=== PATIENT | male | born 1980 | race Two or more races ===

== ENCOUNTER 2017-04-06 08:22 | Inpatient (IN) | payer SELFPAY ==
[2017-04-06 09:03] LABS: BASO # 0.2 x10^3/uL (0.0-0.2); BASO % 1 % (0-3); EOS # 0.1 x10^3/uL (0.0-0.7); EOS % 0 % (0-3); HEMATOCRIT 42.7 % (39.0-53.0); LYMPH # 3.1 x10^3/uL (1.0-4.8); LYMPH % 9 % (24-48); MEAN CORPUSCULAR HEMOGLOBIN 30 pg (25-35); MEAN CORPUSCULAR HGB CONC 33 g/dL (31-37); MEAN CORPUSCULAR VOLUME 90 fL (79-100); MONO # 2.3 x10^3/uL (0.0-1.1); MONO % 7 % (0-9); NEUT # 28.8 x10^3uL (1.8-7.7); NEUT % 84 % (31-73); PLATELET COUNT 417 x10^3/uL (140-400); RED BLOOD COUNT 4.72 x10^6/uL (4.30-5.70); RED CELL DISTRIBUTION WIDTH 13.6 % (11.5-14.5); WHITE BLOOD COUNT 34.5 x10^3/uL (4.0-11.0)
[2017-04-06 09:04] LABS: ADD MAN DIFF? YES
[2017-04-06 09:10] LABS: ANION GAP 8 (6-14); BLOOD UREA NITROGEN 12 mg/dL (8-26); BUN/CREATININE RATIO 13 (6-20); CALCIUM 8.3 mg/dL (8.5-10.1); CARBON DIOXIDE 30 mmol/L (21-32); CHLORIDE 98 mmol/L (98-107); CREATININE 0.9 mg/dL (0.7-1.3); GFR 95.5; GLUCOSE 132 mg/dL (70-99); SODIUM 136 mmol/L (136-145)
[2017-04-06 09:17] LABS: ALBUMIN 2.3 g/dL (3.4-5.0); ALBUMIN/GLOBULIN RATIO 0.4 (1.0-1.7); ALK PHOS 140 U/L (46-116); ALT (SGPT) 64 U/L (16-63); AST (SGOT) 55 U/L (15-37); TOTAL BILIRUBIN 0.6 mg/dL (0.2-1.0); TOTAL PROTEIN 7.5 g/dL (6.4-8.2)
[2017-04-06 09:22] LABS: LACTIC ACID 1.2 mmol/L (0.4-2.0)
[2017-04-06 09:35] LABS: NT-PRO BNP 69 pg/mL (0-124)
[2017-04-06] MEDS: VANCOMYCIN 2 GM in IV DEXTROSE 5% 500 ML IV (09:38)
[2017-04-06] MEDS ORDERED: MORPHINE SULFATE 4 MG/ML DISP.SYRIN. IV (10:00)
[2017-04-06] MEDS ORDERED: ONDANSETRON PF 4 MG/2 ML VIAL. IV (10:00)
[2017-04-06 10:44] LABS: % ATYL 2 % (0-0); % BANDS 8 % (0-9); % LYMPHS 14 % (24-48); % MONOS 3 % (0-10); % SEGS 73 % (35-66); NUCLEATED RBC 1
[2017-04-06 10:45] LABS: PLT ESTIMATE INCREASED (ADEQUATE)
[2017-04-06] MEDS: VANCOMYCIN PER PHARMACY MC (14:47)
[2017-04-06] MEDS: VANCOMYCIN 2 GM in IV DEXTROSE 5 %-0.2 % NACL 500 ML IV (18:52)
[2017-04-07] MEDS: LACTOBACILLUS RHAMNOSUS GG 1 CAPSULE. PO ×3 (00:53→20:32)
[2017-04-07] MEDS: VANCOMYCIN 2 GM in IV DEXTROSE 5 %-0.2 % NACL 500 ML IV (00:54)
[2017-04-07 07:30] LABS: HCV ANTIBODY 0.2 s/co ratio (0.0-0.9); HEP A IGM ABDY Negative (Negative); HEP B SURFACE AG Negative (Negative)
[2017-04-07 08:27] LABS: ADD MAN DIFF? NO
[2017-04-07 08:30] LABS: BASO # 0.2 x10^3/uL (0.0-0.2); BASO % 1 % (0-3); EOS # 0.1 x10^3/uL (0.0-0.7); EOS % 1 % (0-3); HEMATOCRIT 39.9 % (39.0-53.0); HEMOGLOBIN 13.2 g/dL (13.0-17.5); LYMPH # 2.8 x10^3/uL (1.0-4.8); LYMPH % 14 % (24-48); MEAN CORPUSCULAR HEMOGLOBIN 30 pg (25-35); MEAN CORPUSCULAR HGB CONC 33 g/dL (31-37); MEAN CORPUSCULAR VOLUME 91 fL (79-100); MONO # 1.3 x10^3/uL (0.0-1.1); MONO % 7 % (0-9); NEUT % 78 % (31-73); PLATELET COUNT 426 x10^3/uL (140-400); RED CELL DISTRIBUTION WIDTH 13.6 % (11.5-14.5); WHITE BLOOD COUNT 19.4 x10^3/uL (4.0-11.0)
[2017-04-07 09:04] LABS: VANC TR 22.1 mcg/mL (10.0-20.0)
[2017-04-07] MEDS: VANCOMYCIN PER PHARMACY MC (09:12)
[2017-04-07] MEDS: VANCOMYCIN 2 GM in IV DEXTROSE 5% 500 ML IV (15:06)
[2017-04-08] MEDS: VANCOMYCIN 2 GM in IV DEXTROSE 5% 500 ML IV ×2 (00:31→16:52)
[2017-04-08 04:12] LABS: ADD MAN DIFF? NO
[2017-04-08 04:23] LABS: BASO # 0.2 x10^3/uL (0.0-0.2); BASO % 1 % (0-3); EOS # 0.2 x10^3/uL (0.0-0.7); EOS % 1 % (0-3); HEMATOCRIT 40.4 % (39.0-53.0); HEMOGLOBIN 13.2 g/dL (13.0-17.5); LYMPH # 2.6 x10^3/uL (1.0-4.8); LYMPH % 16 % (24-48); MEAN CORPUSCULAR HEMOGLOBIN 30 pg (25-35); MEAN CORPUSCULAR HGB CONC 33 g/dL (31-37); MEAN CORPUSCULAR VOLUME 91 fL (79-100); MONO % 7 % (0-9); NEUT # 12.2 x10^3uL (1.8-7.7); NEUT % 75 % (31-73); PLATELET COUNT 459 x10^3/uL (140-400); RED BLOOD COUNT 4.46 x10^6/uL (4.30-5.70); RED CELL DISTRIBUTION WIDTH 13.9 % (11.5-14.5); WHITE BLOOD COUNT 16.2 x10^3/uL (4.0-11.0)
[2017-04-08 05:47] LABS: SEDIMENTATION RATE 109 (0-15)
[2017-04-08] MEDS: BENZONATATE 100 MG CAPSULE. PO ×3 (10:03→20:31)
[2017-04-08] MEDS: LACTOBACILLUS RHAMNOSUS GG 1 CAPSULE. PO ×2 (10:04→20:31)
[2017-04-08 10:28] LABS: ALBUMIN 1.9 g/dL (3.4-5.0); ALBUMIN/GLOBULIN RATIO 0.3 (1.0-1.7); ALK PHOS 124 U/L (46-116); ALT (SGPT) 60 U/L (16-63); AST (SGOT) 43 U/L (15-37); BLOOD UREA NITROGEN 10 mg/dL (8-26); BUN/CREATININE RATIO 11 (6-20); CREATININE 0.9 mg/dL (0.7-1.3); GFR 95.5; GLUCOSE 113 mg/dL (70-99); TOTAL BILIRUBIN 0.5 mg/dL (0.2-1.0)
[2017-04-08 10:29] LABS: ANION GAP 7 (6-14); CARBON DIOXIDE 31 mmol/L (21-32); CHLORIDE 103 mmol/L (98-107); DIRECT BILIRUBIN 0.2 mg/dL (0.0-0.2); POTASSIUM 4.5 mmol/L (3.5-5.1); SODIUM 141 mmol/L (136-145)
[2017-04-09 03:21] LABS: HEMOGLOBIN A1C 5.6 % (4.8-5.6)
[2017-04-09 04:32] LABS: BASO % 0 % (0-3); EOS # 0.2 x10^3/uL (0.0-0.7); EOS % 1 % (0-3); HEMATOCRIT 39.1 % (39.0-53.0); HEMOGLOBIN 13.1 g/dL (13.0-17.5); LYMPH # 2.8 x10^3/uL (1.0-4.8); LYMPH % 18 % (24-48); MEAN CORPUSCULAR HEMOGLOBIN 31 pg (25-35); MEAN CORPUSCULAR HGB CONC 33 g/dL (31-37); MEAN CORPUSCULAR VOLUME 92 fL (79-100); MONO # 0.9 x10^3/uL (0.0-1.1); MONO % 6 % (0-9); NEUT # 11.6 x10^3uL (1.8-7.7); NEUT % 75 % (31-73); PLATELET COUNT 536 x10^3/uL (140-400); RED BLOOD COUNT 4.27 x10^6/uL (4.30-5.70); RED CELL DISTRIBUTION WIDTH 13.5 % (11.5-14.5); WHITE BLOOD COUNT 15.5 x10^3/uL (4.0-11.0)
[2017-04-09 04:46] LABS: ADD MAN DIFF? YES
[2017-04-09] MEDS: VANCOMYCIN 2 GM in IV DEXTROSE 5% 500 ML IV ×2 (05:08→19:29)
[2017-04-09] MEDS: BENZONATATE 100 MG CAPSULE. PO ×3 (08:48→21:04)
[2017-04-09] MEDS: LACTOBACILLUS RHAMNOSUS GG 1 CAPSULE. PO ×2 (08:48→21:04)
[2017-04-09 11:35] LABS: % ATYL 1 % (0-0); % BANDS 10 % (0-9); % EOS 2 % (0-5); % METAS 2 % (0-0); % MYELOS 3 % (0-0)
[2017-04-09 11:38] LABS: PLT ESTIMATE INCREASED (ADEQUATE)
[2017-04-09 11:40] LABS: POLYCHROMASIA SLIGHT
[2017-04-09 11:41] LABS: % LYMPHS 16 % (24-48); % MONOS 5 % (0-10); % SEGS 61 % (35-66)
[2017-04-09 15:23] LABS: THYROID STIM HORMONE (TSH) 4.684 uIU/mL (0.358-3.74)
[2017-04-09] MEDS: VANCOMYCIN PER PHARMACY MC ×2 (15:31→19:11)
[2017-04-09 18:57] LABS: VANC TR 16.5 mcg/mL (10.0-20.0)
[2017-04-09 19:50] LABS: BILIRUBIN,URINE NEGATIVE (NEG); CLARITY,URINE CLOUDY; COLOR,URINE YELLOW; GLUCOSE,URINE NEGATIVE (NEG); NITRITE,URINE NEGATIVE (NEG); PH,URINE 6.5; PROTEIN,URINE NEGATIVE (NEG-TRACE); UROBILINOGEN,URINE 0.2 mg/dL (0.2 mg/dL)
[2017-04-09 20:17] LABS: BACTERIA,URINE 0 /HPF (0-FEW); RBC,URINE 0 /HPF (0-2); SQUAMOUS EPITHELIAL CELL,UR FEW /LPF; WBC,URINE 0 /HPF (0-4)
[2017-04-10] MEDS: VANCOMYCIN 2 GM in IV DEXTROSE 5% 500 ML IV (06:37)
[2017-04-10] MEDS: LACTOBACILLUS RHAMNOSUS GG 1 CAPSULE. PO ×2 (08:51→20:57)
[2017-04-10] MEDS: BENZONATATE 100 MG CAPSULE. PO ×3 (08:51→20:57)
[2017-04-10] MEDS: VANCOMYCIN PER PHARMACY MC (15:21)
[2017-04-10] MEDS: FLUCONAZOLE 100 MG TABLET. PO (18:40)
[2017-04-11 05:48] LABS: GFR 84.5
[2017-04-11] MEDS: LACTOBACILLUS RHAMNOSUS GG 1 CAPSULE. PO ×2 (08:20→21:24)
[2017-04-11] MEDS: FLUCONAZOLE 100 MG TABLET. PO (08:20)
[2017-04-11] MEDS: BENZONATATE 100 MG CAPSULE. PO ×3 (08:20→21:24)
[2017-04-11] MEDS: ENOXAPARIN 40 MG/0.4 ML SYRINGE. SQ (11:46)
[2017-04-11 16:34] LABS: INR 1.1 (0.8-1.1); PROTHROMBIN TIME PATIENT 13.1 SEC (11.7-14.0)
[2017-04-11] MEDS: WARFARIN 7.5 MG TABLET. PO (17:46)
[2017-04-12] MEDS: BENZONATATE 100 MG CAPSULE. PO ×3 (09:48→20:59)
[2017-04-12] MEDS: LACTOBACILLUS RHAMNOSUS GG 1 CAPSULE. PO ×2 (09:48→20:59)
[2017-04-12] MEDS: FLUCONAZOLE 100 MG TABLET. PO (09:48)
[2017-04-12 10:28] LABS: ADD MAN DIFF? NO
[2017-04-12 10:46] LABS: BASO % 0 % (0-3); EOS # 0.1 x10^3/uL (0.0-0.7); EOS % 1 % (0-3); HEMATOCRIT 41.5 % (39.0-53.0); HEMOGLOBIN 13.5 g/dL (13.0-17.5); LYMPH # 3.1 x10^3/uL (1.0-4.8); LYMPH % 22 % (24-48); MEAN CORPUSCULAR HEMOGLOBIN 30 pg (25-35); MEAN CORPUSCULAR HGB CONC 33 g/dL (31-37); MEAN CORPUSCULAR VOLUME 91 fL (79-100); MONO # 0.8 x10^3/uL (0.0-1.1); MONO % 6 % (0-9); NEUT % 71 % (31-73); PLATELET COUNT 634 x10^3/uL (140-400); RED BLOOD COUNT 4.55 x10^6/uL (4.30-5.70); RED CELL DISTRIBUTION WIDTH 13.7 % (11.5-14.5); WHITE BLOOD COUNT 14.1 x10^3/uL (4.0-11.0)
[2017-04-12 10:50] LABS: INR 1.3 (0.8-1.1); PROTHROMBIN TIME PATIENT 15.1 SEC (11.7-14.0)
[2017-04-12 10:53] LABS: ANION GAP 5 (6-14); BLOOD UREA NITROGEN 12 mg/dL (8-26); CALCIUM 8.9 mg/dL (8.5-10.1); CARBON DIOXIDE 33 mmol/L (21-32); CHLORIDE 99 mmol/L (98-107); CREATININE 1.1 mg/dL (0.7-1.3); GFR 75.7; GLUCOSE 122 mg/dL (70-99); POTASSIUM 4.2 mmol/L (3.5-5.1); SODIUM 137 mmol/L (136-145)
[2017-04-12] MEDS ORDERED: ENOXAPARIN 40 MG/0.4 ML SYRINGE. SQ (11:00)
[2017-04-12] MEDS: IOHEXOL 300 MG/ML 100ML VIAL. IV (14:00)
[2017-04-12] MEDS ORDERED: CONTRAST GIVEN MC (14:15)
[2017-04-12] MEDS ORDERED: WARFARIN 7.5 MG TABLET. PO (16:00)
[2017-04-12] MEDS: WARFARIN 6 MG TABLET. PO (16:07)
[2017-04-13] MEDS: BENZONATATE 100 MG CAPSULE. PO ×3 (08:47→21:47)
[2017-04-13] MEDS: FLUCONAZOLE 100 MG TABLET. PO (08:47)
[2017-04-13] MEDS: LACTOBACILLUS RHAMNOSUS GG 1 CAPSULE. PO ×2 (08:47→21:47)
[2017-04-13 13:12] LABS: INR 1.4 (0.8-1.1); PROTHROMBIN TIME PATIENT 16.4 SEC (11.7-14.0)
[2017-04-13] MEDS: WARFARIN 6 MG TABLET. PO (15:26)
[2017-04-13] MEDS: ANTI-COAG MONITOR BY PHARMACY. MC (20:16)
[2017-04-14 04:40] LABS: INR 1.5 (0.8-1.1); PROTHROMBIN TIME PATIENT 17.5 SEC (11.7-14.0)
[2017-04-14 07:32] LABS: ALBUM 2.3 g/dL (2.9-4.4); ALPHA 1 0.4 g/dL (0.0-0.4); ALPHA 2 1.4 g/dL (0.4-1.0); GAMMA 2.1 g/dL (0.4-1.8); M-SPIKE Not Observed g/dL (Not Observed); PROTEIN TOTAL 7.2 g/dL (6.0-8.5); SPEP AG RATIO 0.5 (0.7-1.7)
[2017-04-14] MEDS: FLUCONAZOLE 100 MG TABLET. PO (09:21)
[2017-04-14] MEDS: LACTOBACILLUS RHAMNOSUS GG 1 CAPSULE. PO ×2 (09:22→21:58)
[2017-04-14] MEDS: BENZONATATE 100 MG CAPSULE. PO ×3 (09:22→21:58)
[2017-04-14 09:26] LABS: IMMUNOGLOBULIN A 422 mg/dL (90-386); IMMUNOGLOBULIN G 2300 mg/dL (700-1600); IMMUNOGLOBULIN M 63 mg/dL (20-172)
[2017-04-14] MEDS: CEPHALEXIN 250 MG CAPSULE. PO ×3 (13:06→21:58)
[2017-04-14] MEDS: ANTI-COAG MONITOR BY PHARMACY. MC (16:38)
[2017-04-14] MEDS: WARFARIN 7.5 MG TABLET. PO (18:21)
[2017-04-15 04:36] LABS: ADD MAN DIFF? NO
[2017-04-15 04:44] LABS: BASO # 0.1 x10^3/uL (0.0-0.2); BASO % 1 % (0-3); EOS # 0.1 x10^3/uL (0.0-0.7); EOS % 1 % (0-3); HEMATOCRIT 38.9 % (39.0-53.0); LYMPH # 3.5 x10^3/uL (1.0-4.8); LYMPH % 32 % (24-48); MEAN CORPUSCULAR HEMOGLOBIN 30 pg (25-35); MEAN CORPUSCULAR HGB CONC 33 g/dL (31-37); MEAN CORPUSCULAR VOLUME 91 fL (79-100); MONO # 0.7 x10^3/uL (0.0-1.1); MONO % 6 % (0-9); NEUT # 6.6 x10^3uL (1.8-7.7); NEUT % 60 % (31-73); PLATELET COUNT 526 x10^3/uL (140-400); RED CELL DISTRIBUTION WIDTH 13.5 % (11.5-14.5)
[2017-04-15 05:15] LABS: ANION GAP 6 (6-14); BLOOD UREA NITROGEN 14 mg/dL (8-26); CALCIUM 9.4 mg/dL (8.5-10.1); CARBON DIOXIDE 31 mmol/L (21-32); CHLORIDE 102 mmol/L (98-107); GFR 84.5; GLUCOSE 100 mg/dL (70-99); POTASSIUM 4.4 mmol/L (3.5-5.1); SODIUM 139 mmol/L (136-145)
[2017-04-15 05:57] LABS: INR 1.5 (0.8-1.1); PROTHROMBIN TIME PATIENT 17.5 SEC (11.7-14.0)
[2017-04-15] MEDS: LACTOBACILLUS RHAMNOSUS GG 1 CAPSULE. PO ×2 (09:00→20:48)
[2017-04-15] MEDS: BENZONATATE 100 MG CAPSULE. PO ×3 (09:18→20:48)
[2017-04-15] MEDS: CEPHALEXIN 250 MG CAPSULE. PO ×4 (09:18→20:48)
[2017-04-15 13:17] LABS: LOW MOLECULAR WEIGHT HEPARIN 1.11 IU/mL
[2017-04-15] MEDS: ENOXAPARIN 30 MG/0.3 ML SYRINGE. SQ (20:49)
[2017-04-16 04:53] LABS: INR 1.7 (0.8-1.1); PROTHROMBIN TIME PATIENT 18.6 SEC (11.7-14.0)
[2017-04-16] MEDS: LACTOBACILLUS RHAMNOSUS GG 1 CAPSULE. PO ×2 (08:45→21:53)
[2017-04-16] MEDS: BENZONATATE 100 MG CAPSULE. PO ×3 (08:46→21:53)
[2017-04-16] MEDS: CEPHALEXIN 250 MG CAPSULE. PO ×4 (08:46→21:53)
[2017-04-16] MEDS: ENOXAPARIN 30 MG/0.3 ML SYRINGE. SQ ×2 (08:47→21:00)
[2017-04-16 12:32] LABS: INR 1.5 (0.8-1.1); PROTHROMBIN TIME PATIENT 17.3 SEC (11.7-14.0)
[2017-04-16] MEDS: WARFARIN 3 MG TABLET. PO (16:00)
[2017-04-17 06:12] LABS: INR 1.5 (0.8-1.1); PROTHROMBIN TIME PATIENT 16.9 SEC (11.7-14.0)
[2017-04-17 08:20] LABS: ANION GAP 6 (6-14); BLOOD UREA NITROGEN 17 mg/dL (8-26); CALCIUM 8.7 mg/dL (8.5-10.1); CARBON DIOXIDE 30 mmol/L (21-32); CHLORIDE 102 mmol/L (98-107); CREATININE 0.8 mg/dL (0.7-1.3); GFR 109.4; GLUCOSE 100 mg/dL (70-99); POTASSIUM 4.5 mmol/L (3.5-5.1); SODIUM 138 mmol/L (136-145)
[2017-04-17] MEDS: ENOXAPARIN 30 MG/0.3 ML SYRINGE. SQ ×2 (09:00→20:17)
[2017-04-17] MEDS: LACTOBACILLUS RHAMNOSUS GG 1 CAPSULE. PO ×2 (09:32→20:18)
[2017-04-17] MEDS: CEPHALEXIN 250 MG CAPSULE. PO ×4 (09:32→20:18)
[2017-04-17] MEDS: BENZONATATE 100 MG CAPSULE. PO ×3 (09:32→20:18)
[2017-04-17] MEDS: ANTI-COAG MONITOR BY PHARMACY. MC (11:33)
[2017-04-17] MEDS ORDERED: HYDROCORTISONE 2.5% RECTAL CREAM 30GM TUBE. RC (11:45)
[2017-04-17] MEDS: WARFARIN 6 MG TABLET. PO (17:16)
[2017-04-18 05:31] LABS: ADD MAN DIFF? NO
[2017-04-18 05:42] LABS: BASO # 0.1 x10^3/uL (0.0-0.2); BASO % 1 % (0-3); EOS # 0.1 x10^3/uL (0.0-0.7); EOS % 1 % (0-3); HEMOGLOBIN 13.5 g/dL (13.0-17.5); LYMPH # 2.9 x10^3/uL (1.0-4.8); LYMPH % 31 % (24-48); MEAN CORPUSCULAR HEMOGLOBIN 31 pg (25-35); MEAN CORPUSCULAR HGB CONC 34 g/dL (31-37); MEAN CORPUSCULAR VOLUME 91 fL (79-100); MONO # 0.6 x10^3/uL (0.0-1.1); MONO % 7 % (0-9); NEUT # 5.7 x10^3uL (1.8-7.7); NEUT % 60 % (31-73); PLATELET COUNT 431 x10^3/uL (140-400); RED BLOOD COUNT 4.42 x10^6/uL (4.30-5.70); RED CELL DISTRIBUTION WIDTH 13.7 % (11.5-14.5); WHITE BLOOD COUNT 9.4 x10^3/uL (4.0-11.0)
[2017-04-18 06:00] LABS: INR 1.3 (0.8-1.1)
[2017-04-18] MEDS: CEPHALEXIN 250 MG CAPSULE. PO ×4 (08:58→20:28)
[2017-04-18] MEDS: ENOXAPARIN 30 MG/0.3 ML SYRINGE. SQ ×2 (08:58→20:28)
[2017-04-18] MEDS: BENZONATATE 100 MG CAPSULE. PO ×3 (08:58→20:28)
[2017-04-18] MEDS: LACTOBACILLUS RHAMNOSUS GG 1 CAPSULE. PO ×2 (08:58→20:28)
[2017-04-18] MEDS: ANTI-COAG MONITOR BY PHARMACY. MC (12:34)
[2017-04-18] MEDS: WARFARIN 6 MG TABLET. PO (16:35)
[2017-04-19 05:20] LABS: ADD MAN DIFF? NO
[2017-04-19 05:42] LABS: INR 1.4 (0.8-1.1); PROTHROMBIN TIME PATIENT 16.2 SEC (11.7-14.0)
[2017-04-19 05:47] LABS: BASO % 1 % (0-3); EOS # 0.1 x10^3/uL (0.0-0.7); EOS % 2 % (0-3); LYMPH # 3.1 x10^3/uL (1.0-4.8); LYMPH % 36 % (24-48); MEAN CORPUSCULAR HEMOGLOBIN 30 pg (25-35); MEAN CORPUSCULAR HGB CONC 33 g/dL (31-37); MEAN CORPUSCULAR VOLUME 91 fL (79-100); MONO # 0.6 x10^3/uL (0.0-1.1); MONO % 7 % (0-9); NEUT # 4.6 x10^3uL (1.8-7.7); NEUT % 55 % (31-73); PLATELET COUNT 374 x10^3/uL (140-400); RED BLOOD COUNT 4.29 x10^6/uL (4.30-5.70); RED CELL DISTRIBUTION WIDTH 13.8 % (11.5-14.5); WHITE BLOOD COUNT 8.5 x10^3/uL (4.0-11.0)
[2017-04-19 06:08] LABS: ANION GAP 6 (6-14); BLOOD UREA NITROGEN 18 mg/dL (8-26); CALCIUM 9.2 mg/dL (8.5-10.1); CARBON DIOXIDE 30 mmol/L (21-32); CHLORIDE 104 mmol/L (98-107); CREATININE 0.8 mg/dL (0.7-1.3); GFR 109.4; GLUCOSE 106 mg/dL (70-99); POTASSIUM 4.1 mmol/L (3.5-5.1); SODIUM 140 mmol/L (136-145)
[2017-04-19] MEDS: ENOXAPARIN 30 MG/0.3 ML SYRINGE. SQ ×2 (09:02→20:54)
[2017-04-19] MEDS: BENZONATATE 100 MG CAPSULE. PO ×3 (09:03→20:51)
[2017-04-19] MEDS: LACTOBACILLUS RHAMNOSUS GG 1 CAPSULE. PO ×2 (09:03→20:51)
[2017-04-19] MEDS: CEPHALEXIN 250 MG CAPSULE. PO ×4 (09:03→20:51)
[2017-04-19] MEDS: WARFARIN 10 MG TABLET. PO (15:42)
[2017-04-19] MEDS ORDERED: WARFARIN 6 MG TABLET. PO (16:00)
[2017-04-20 05:52] LABS: ADD MAN DIFF? NO
[2017-04-20 06:00] LABS: BASO % 1 % (0-3); EOS # 0.1 x10^3/uL (0.0-0.7); EOS % 1 % (0-3); HEMATOCRIT 38.8 % (39.0-53.0); HEMOGLOBIN 12.6 g/dL (13.0-17.5); LYMPH # 2.8 x10^3/uL (1.0-4.8); LYMPH % 34 % (24-48); MEAN CORPUSCULAR HEMOGLOBIN 30 pg (25-35); MEAN CORPUSCULAR HGB CONC 32 g/dL (31-37); MEAN CORPUSCULAR VOLUME 91 fL (79-100); MONO # 0.5 x10^3/uL (0.0-1.1); MONO % 7 % (0-9); NEUT # 4.6 x10^3uL (1.8-7.7); NEUT % 57 % (31-73); PLATELET COUNT 342 x10^3/uL (140-400); RED BLOOD COUNT 4.25 x10^6/uL (4.30-5.70); RED CELL DISTRIBUTION WIDTH 13.8 % (11.5-14.5); WHITE BLOOD COUNT 8.1 x10^3/uL (4.0-11.0)
[2017-04-20 06:20] LABS: INR 1.7 (0.8-1.1); PROTHROMBIN TIME PATIENT 18.5 SEC (11.7-14.0)
[2017-04-20 06:21] LABS: ANION GAP 6 (6-14); BLOOD UREA NITROGEN 16 mg/dL (8-26); CALCIUM 9.2 mg/dL (8.5-10.1); CARBON DIOXIDE 32 mmol/L (21-32); CHLORIDE 103 mmol/L (98-107); CREATININE 0.8 mg/dL (0.7-1.3); GFR 109.4; GLUCOSE 95 mg/dL (70-99); POTASSIUM 4.3 mmol/L (3.5-5.1); SODIUM 141 mmol/L (136-145)
[2017-04-20] MEDS: LACTOBACILLUS RHAMNOSUS GG 1 CAPSULE. PO (09:47)
[2017-04-20] MEDS: BENZONATATE 100 MG CAPSULE. PO ×2 (09:47→14:10)
[2017-04-20] MEDS: CEPHALEXIN 250 MG CAPSULE. PO ×2 (09:48→12:36)
[2017-04-20] MEDS: WARFARIN 10 MG TABLET. PO (12:37)
== END 2017-04-20 14:10 | disposition home or self-care (01) | DRG 300 ==
LOC: ER 08:22 → 6 SOUTH 10:00
DX: I82.622 Acute embolism and thrombosis of deep veins of left upper extremity (principal); K92.2 Gastrointestinal hemorrhage, unspecified; R65.10 Systemic inflammatory response syndrome (SIRS) of non-infectious origin without acute organ dysfunction; E66.01 Morbid (severe) obesity due to excess calories; K76.0 Fatty (change of) liver, not elsewhere classified; L03.115 Cellulitis of right lower limb; Z68.45 Body mass index [BMI] 70 or greater, adult; B35.3 Tinea pedis; R74.0 Nonspecific elevation of levels of transaminase and lactic acid dehydrogenase [LDH]; I10 Essential (primary) hypertension; I80.8 Phlebitis and thrombophlebitis of other sites; K59.00 Constipation, unspecified; R79.1 Abnormal coagulation profile; Z79.01 Long term (current) use of anticoagulants; Z83.3 Family history of diabetes mellitus
CPT/HCPCS: 36415; 71045; 73610; 73620; 73701; 76705; 78315; 80048; 80053; 80074; 80202; 81001; 82248; 82565; 83036; 83605; 83880; 84165; 84443; 85007; 85025; 85520; 85610; 85651; 86334; 87040; 93005; 93971; 96365; 96367; 96374; 97161-GP; 97165-GO; 99285; 99285-25; A9503; J0690; J1650; J3370